=== PATIENT | female | born 1940 | race Caucasian/White ===

== ENCOUNTER 2023-03-14 13:13 | Outpatient (CLI) | payer MEDICARE | END 2023-03-14 13:14 | disposition home or self-care (01) | LOC: CSHMAMMO 13:13 | PROVIDERS: ATTEND Obstetrics & Gynecology | DX: Z12.31 Encounter for screening mammogram for malignant neoplasm of breast (principal) | CPT/HCPCS: 77063; 77067 ==

== ENCOUNTER 2024-10-27 14:40 | Emergency (ER) | payer MEDICARE ==
[2024-10-27] MEDS ORDERED: Acetaminophen 500 MG TAB ONE (16:10)
== END 2024-10-27 16:30 | disposition home or self-care (01) ==
LOC: CSHERS 14:40
DX: U07.1 COVID-19 (principal); I10 Essential (primary) hypertension
CPT/HCPCS: 87428; Q0162; 99284